=== PATIENT | female | born 1980 | race Caucasian/White ===

== ENCOUNTER 2018-09-28 10:35 | Outpatient (CLI) | payer OTHER, SELFPAY ==
[2018-09-28 12:09] LABS: Cholesterol 199 mg/dL (50-200); HDL Cholesterol 61 mg/dL (40-60); LDL CHOLESTEROL 121 mg/dL (<100); Triglyceride 77 mg/dL (30-150)
[2018-09-28 12:21] LABS: *AMPHETAMINES SCREEN URINE Negative (Negative); *BARBITURATES SCREEN URINE Negative (Negative); *BENZODIAZEPINES SCREEN URINE Negative (Negative); Cannabinoids THC Negative (Negative); Cocaine Screen,Urine Negative (Negative); METHADONE URINE SCREEN Negative (Negative); OPIATES URINE SCREEN Negative (Negative); Tricyclic Antidepressants Negative (Negative)
[2018-09-29 12:00] LABS: Varicella IgG Antibody Positive
== END 2018-09-28 10:55 ==
PROVIDERS: PCP Family Medicine; Visit Provider Obstetrics & Gynecology Gynecology
DX: Z00.00 Encounter for general adult medical examination without abnormal findings (principal); Z01.84 Encounter for antibody response examination; Z13.220 Encounter for screening for lipoid disorders
CPT/HCPCS: 36415; 80061; 80307; 83721; 86787

== ENCOUNTER 2020-04-09 13:49 | Outpatient (CLI) | payer BC, SELFPAY ==
[2020-04-12 13:42] LABS: Method Summary See Comments; Patient Race White; SARS-CoV-2 RNA Undetected (Undetected); SARS-CoV-2 Specimen Source Nasal
== END 2020-04-09 14:09 ==
PROVIDERS: PCP Family Medicine; Visit Provider Family Medicine
DX: Z11.59 Encounter for screening for other viral diseases (principal)
CPT/HCPCS: U0003

== ENCOUNTER 2024-12-07 00:46 | Outpatient (CLI) | payer OTHER, SELFPAY ==
--- NOTE | 2024-12-07 | DI.MAMMO_ITS ---
Exam(s) MAMMO SCREENING EXAM: MAMMO SCREENING CLINICAL HISTORY: Z12.39 Encounter for other screening for malig neoplasm of breast TECHNIQUE: Mammograms were interpreted according to the usual protocol including computer analysis w [employer] [place] CAD system, tomosynthesis and C-view imaging. COMPARISON: No exams were available for comparison. Baseline examination. FINDINGS: The breasts are composed of scattered fibroglandular densities, Breast Density category B. No suspicious masses or suspicious microcalcifications are seen. No skin thickening or abnormal axillary lymph nodes are seen. IMPRESSION: BI-RADS Category 1, Negative mammogram Yearly screening mammography is recommended. Breast Density - Category B, scattered fibroglandular densities. A negative radiographic report should not delay biopsy if a dominant or clinically suspicious mass is present. Up to ten percent of cancers are not identified on mammography. A negative report may reinforce clinical impression. Adenosis and dense breasts may obscure an underlying neoplasm. False positive reports average 6 to 10%. Patient will receive a letter notifying them of these results.
== END 2024-12-07 01:06 ==
LOC: DI 00:47
PROVIDERS: PCP Nurse Practitioner Family; Visit Provider Nurse Practitioner Family
DX: Z12.31 Encounter for screening mammogram for malignant neoplasm of breast (principal); R92.323 Mammographic fibroglandular density, bilateral breasts
CPT/HCPCS: 77063; 77067

== ENCOUNTER 2024-12-07 09:10 | Outpatient (REF) | payer OTHER, SELFPAY ==
--- NOTE | 2024-12-07 08:30 | PAPFT_PTH ---
PATIENT: Romy Levi LOC: [facility] U#:[id number] AGE/SX: 44/F ROOM: RE12/07/[address]: Ruby Evans DO : 1980 BED: DIS: 12/07/2024 SPEC #: [id number] RECD: 12/07/24 12:55 STATUS: TERESITA REQ #: [id number] EVAN: 12/07/24 08:[address]: Ruby Evans DEPT: [facility] [place] Cytology RECD BY: Deidre Vann ENTERED: 12/07/24 12:56 SP TYPE: PAPFT OTHR DR: Collette Quinones Tissues: 1 - CX/ENDOCX FOR PAP SMEARS Procedures: PAP THIN PREP/[facility] Screening HPV DNA PROBE Comments: [id number] (HPV 16 & 18/45)
== END 2024-12-07 09:11 | disposition home or self-care (01) ==
LOC: LBN 09:10
PROVIDERS: PCP Nurse Practitioner Family; Visit Provider Obstetrics & Gynecology
DX: Z11.51 Encounter for screening for human papillomavirus (HPV) (principal); Z01.419 Encounter for gynecological examination (general) (routine) without abnormal findings; N76.0 Acute vaginitis
CPT/HCPCS: 88142; 87624